=== PATIENT | male | born 1975 | race Asian ===

== ENCOUNTER 2023-05-10 09:20 | Outpatient (CLI) | payer BC, SELFPAY ==
[2023-05-10 14:26] LABS: Alanine Aminotransferase 33 U/L (6-50); Albumin Level 4.4 g/dL (3.5-5.1); Alkaline Phosphatase 70 U/L (38-126); Anion Gap 6 mmol/L (8-16); Aspartate Amino Transferase 39 U/L (17-59); Bilirubin,Total 1.4 mg/dL (0.2-1.3); Blood Urea Nitrogen 12 mg/dL (9-20); Calcium 9.3 mg/dL (8.4-10.2); Carbon Dioxide 33 mmol/L (22-30); Chloride 99 mmol/L (98-107); Cholesterol 190 mg/dL (0-200); Estimated Glomerular Filt Rate > 60; Glucose 116 mg/dL (65-110); HDL Direct 33 mg/dL; Potassium 3.5 mmol/L (3.4-5.0); Sodium 138 mmol/L (137-145); Triglycerides 286 mg/dL (<150)
[2023-05-10 14:37] LABS: LDL Cholesterol Direct 98 mg/dL
== END 2023-05-10 09:21 | disposition home or self-care (01) ==
LOC: ANHGOSHLAB 09:22
PROVIDERS: PCP Family Medicine; Visit Provider Family Medicine
DX: R73.03 Prediabetes (principal); E78.1 Pure hyperglyceridemia; Z13.228 Encounter for screening for other metabolic disorders
CPT/HCPCS: 36415; 80053; 80061; 83036

== ENCOUNTER 2023-06-22 02:36 | Day surgery (SDC) | payer BC, SELFPAY ==
[2023-06-15 09:54] VITALS: BMI 25.4
--- NOTE | 2023-06-20 09:11 | SUR.PREOP ---
Patient called regarding upcoming procedure. Reviewed preop instructions, appointment times, and procedure prep.
[2023-06-22 09:46] VITALS: BP 96/74; PULSE 62; RESP 20; O2SAT 99
[2023-06-22 09:57] VITALS: BMI 24.7
[2023-06-22] MEDS: LACTATED RINGERS 1,000 ML 150 ML IV CONT (10:00)
--- NOTE | 2023-06-22 10:06 | P.PNAN_ITS ---
Anes - Initial Pre Proc Eval Procedure: Operation Date: 06/22/23 11:00 Proposed Procedures p Screening Colonoscopy - David Puri MD Date/Time: 06/22/23 10:06 Surgeon: David Puri MD Pre Op Diagnosis: neoplasm screening Patient Data Age: 47 Gender: M Height: 1.83 m Weight: 83 kg Allergies Allergy/AdvReac Type Severity Reaction Status Date / Time No Known Allergies Allergy Verified 06/22/23 09:55 Home Medications Medication Instructions Recorded Confirmed Type hydrochlorothiazide 25 mg tablet 25 mg PO DAILY #90 tabs 05/13/23 06/22/23 Rx losartan 50 mg tablet 50 mg PO DAILY #90 tabs 05/13/23 06/22/23 Rx Patient hx anesthesia problems: none Family hx anesthesia problems: none Results Review: All pre-operative results and documents have been reviewed as part of the pre- operative evaluation. [facility] Past Medical History Medical History Acute serous otitis media, recurrent, unspecified ear Acute upper respiratory infection Hematuria, gross Mixed hyperlipidemia Prostatitis, acute Family History Family History Mother Patient's mother is in good health Father Patient's father is in good health Social History Social History Years smoked: 20 Smoking status: Current some day smoker Tobacco type: cigarettes Smoking end date: 04/22/22 Alcohol intake: current Drinks per week: 1 Alcohol use details: Beer & Whiskey Substance use: never Substance use type: does not use Lack of Transportation: No Lack of Food: Never True Current Housing: I Have Housing Concerned About Future Housing: No Difficulty Paying Gas/Electric Bills: No Difficulty Paying for Meds: No Currently Unemployed: No Education: Master's Degree or Higher Difficulty w/ Childcare or Family Care: No Living arrangements: with family Occupation/Education: occupation 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): Male Sexual Orientation (if Verbalized by the Patient): Straight or Heterosexual Spiritual care concerns: No Anes - Eval Final PreProcedure Day of Procedure 03/13/24 10:06 Patient weight: normal Heart: regular rate and rhythm Lungs: clear to auscultation Airway: Mallampati scale class II Neurological: alert and oriented Last oral intake: >/= 8 hours ASA classification: II Emergent: no Anesthetic plan: proceed Anesthesia type and monitoring: general GIVS and standard monitoring Results Review: All pre-operative results and documents have been reviewed as part of the pre- operative evaluation. Informed Consent: The patient's anesthetic plan and its attendant risks and benefits were discussed with the patient/family/POA. Questions were solicited and answers provided to the satisfaction of the patient/family/POA.
--- NOTE | 2023-06-22 10:59 | PM.HPGS ---
History of Present Illness History of Present Illness Consent: Risks, benefits, and alternatives have been discussed and questions answered. Patient agrees to proceed with procedure. Chief complaint: neoplasm screening Narrative: Lior Aguila is a 47 year old male here for first screening colonoscopy Review of Systems Review of Systems: All systems reviewed & are unremarkable except as noted in HPI and below PMFSH Past Medical History Medical History (Updated 06/22/23 @ 10:59 by David Puri MD) Acute serous otitis media, recurrent, unspecified ear Acute upper respiratory infection Colon cancer screening Hematuria, gross Mixed hyperlipidemia Prostatitis, acute Family History Family History Mother Patient's mother is in good health Father Patient's father is in good health Social History Social History Years smoked: 20 Smoking status: Current some day smoker Tobacco type: cigarettes Smoking end date: 04/22/22 Alcohol intake: current Drinks per week: 1 Alcohol use details: Beer & Whiskey Substance use: never Substance use type: does not use Lack of Transportation: No Lack of Food: Never True Current Housing: I Have Housing Concerned About Future Housing: No Difficulty Paying Gas/Electric Bills: No Difficulty Paying for Meds: No Currently Unemployed: No Education: Master's Degree or Higher Difficulty w/ Childcare or Family Care: No Living arrangements: with family Occupation/Education: occupation 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): Male Sexual Orientation (if Verbalized by the Patient): Straight or Heterosexual Spiritual care concerns: No Meds Home Medications and Allergies Home Medications Medication Instructions Recorded Confirmed Type hydrochlorothiazide 25 mg tablet 25 mg PO DAILY #90 tabs 05/13/23 06/22/23 Rx losartan 50 mg tablet 50 mg PO DAILY #90 tabs 05/13/23 06/22/23 Rx Allergies Allergy/AdvReac Type Severity Reaction Status Date / Time No Known Allergies Allergy Verified 06/22/23 09:55 Exam Const: General: comfortable and no acute distress HENMT: Face/Nose/Sinus: Normal nares present Eyes: General: appearance normal, both eyes and all related structures Neck: Neck: no JVD Resp: Auscultation: clear to auscultation bilaterally Cardio: Rate: regular rate Rhythm: regular rhythm GI: Inspection: non-distended GI Palp: Yes Soft to palpation Skin: General skin exam: normal color Neuro: General: gait normal Speech: normal speech Extrem: General: normal to inspection Psych: Mental Status: mental status grossly normal Assessment and Plan Assessment and plan (1) Colon cancer screening: Code(s): Z12.11 - Encounter for screening for malignant neoplasm of colon Status: Acute Assessment and Plan: colonoscopy
[2023-06-22 11:15] VITALS: BP 99/60; PULSE 55; RESP 17; O2SAT 100
[2023-06-22 11:25] VITALS: BP 97/64; PULSE 55; RESP 19; O2SAT 100
[2023-06-22 11:35] VITALS: BP 102/76; PULSE 55; RESP 16; O2SAT 99
== END 2023-06-22 11:43 | disposition home or self-care (01) ==
PROVIDERS: PCP Family Medicine; Visit Provider Internal Medicine Gastroenterology
PROC: 0DJD8ZZ Inspection of Lower Intestinal Tract, Via Natural or Artificial Opening Endoscopic (ICD-10-PCS; CPT 45378; principal; 2023-06-22 11:00)
DX: Z12.11 Encounter for screening for malignant neoplasm of colon (principal); D12.4 Benign neoplasm of descending colon; Z87.891 Personal history of nicotine dependence
CPT/HCPCS: 45380; 88305; J2704; J7120

== ENCOUNTER 2024-07-04 08:02 | Emergency (ER) | payer BC, SELFPAY ==
--- NOTE | ~2024-07-04 | XR_ITS ---
EXAMINATION: XR ankle RT min 3V DATE: 07/04/2024 08:32 INDICATION: Lateral right ankle pain and swelling post fall TECHNIQUE: Anteroposterior, oblique, mortise, and lateral views of the right ankle were obtained. COMPARISON: None. FINDINGS: Alignment is normal. No fracture. Joint spaces are well maintained. Achilles calcaneal spur. No ankl e joint effusion. Soft tissue swelling overlying the dorsolateral aspect of the mid and hindfoot. IMPRESSION: 1. No acute osseous abnormality. Reviewed, dictated and finalized at location B.
[2024-07-04 08:14] VITALS: BP 143/99; PULSE 60; RESP 16; TEMP 36.5; O2SAT 100
--- NOTE | 2024-07-04 08:23 | ED.LOWEXIN ---
HPI - Extremity Injury (Lower) General Chief Complaint: Extremity Injury, Lower Stated Complaint: INJURED R ANKLE Time Seen by Provider: 07/04/24 08:15 Source: patient and RN notes reviewed Mode of arrival: ambulatory Limitations: no limitations History of Present Illness HPI Narrative: Patient presents today complaining of right lateral ankle pain. He fell up some stairs at home this morning, twisting it. Denies numbness or tingling in the leg or foot. Currently rates his pain 5/10, which increases with weight-bearing. He took some Tylenol prior to arrival which did provide some relief. No previous injury to the affected ankle. Related Data Allergies Allergy/AdvReac Type Severity Reaction Status Date / Time No Known Allergies Allergy Verified 07/04/24 08:10 Review of Systems Review of Systems: CONSTITUTIONAL: Denies body aches, fever, chills, or sweats. EYES: Denies visual changes, redness, or discharge. ENT: Denies rhinorrhea, congestion, sore throat, or otalgia. CARDIOVASCULAR: Denies chest pain, palpitations, or edema. RESPIRATORY: Denies cough or dyspnea. GASTROINTESTINAL: Denies abdominal pain, nausea, vomiting, or diarrhea. GENITOURINARY: Denies dysuria or hematuria. SKIN: Denies rash, itching, or wounds. MUSCULOSKELETAL: Denies back pain, or myalgia.+ right ankle injury NEUROLOGIC: Denies headache, numbness, tingling, or weakness. PSYCH: Denies depression or anxiety. [facility] Past Medical History Medical History Colon cancer screening Acute serous otitis media, recurrent, unspecified ear Acute upper respiratory infection Hematuria, gross Mixed hyperlipidemia Prostatitis, acute Family History Family History Mother Patient's mother is in good health Father Patient's father is in good health Social History Social History Years smoked: 20 Smoking status: Current some day smoker Tobacco type: cigarettes Smoking end date: 04/22/22 Alcohol intake: current Drinks per week: 1 Alcohol use details: Beer & Whiskey Substance use: never Substance use type: does not use Lack of Transportation: No Lack of Food: Never True Current Housing: I Have Housing Concerned About Future Housing: No Difficulty Paying Gas/Electric Bills: No Difficulty Paying for Meds: No Currently Unemployed: No Education: Master's Degree or Higher Difficulty w/ Childcare or Family Care: No Living arrangements: with family Occupation/Education: occupation 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 Please see nursing chart for further information. There is no relevant family history pertinent to the presenting complaint Exam Narrative: GENERAL: Well-appearing, well-nourished, and in no acute distress. HEAD: Normocephalic, atraumatic. EYES: EOMI. No redness or drainage. Conjunctivae normal. ENT: Mucous membranes pink and moist. NECK: Normal AROM. CHEST: No respiratory distress. EXTREMITIES: Right ankle: Bony tenderness to the lateral malleolus with mild localized edema anteriorly. No tenderness medially or posteriorly. Mild tenderness to the lateral foot as well without edema. No erythema, deformity, ecchymosis. Distal sensation intact. Capillary refill normal. Pedal pulse normal. Full range of motion of the toes. Range of motion limited to the ankle due to pain. SKIN: Warm, dry, no rash. Capillary refill normal. Normal skin turgor. NEURO: No focal deficits. Alert and oriented x3. Gait steady. PSYCH: Normal affect. No signs of depression or anxiety. Course Course Level of Care: Express Care Visit Vital Signs Vital signs: Vital Signs Temperature 97.7 F 07/04/24 08:14 Pulse Rate 60 07/04/24 08:14 Respiratory Rate 16 07/04/24 08:14 Blood Pressure 143/99 H 07/04/24 08:14 Pulse Oximetry 100 07/04/24 08:14 Temperature 97.7 F 07/04/24 08:14 Pulse Rate 60 07/04/24 08:14 Respiratory Rate 16 07/04/24 08:14 Blood Pressure 143/99 H 07/04/24 08:14 Pulse Oximetry 100 07/04/24 08:14 Reviewed MDM - Extremity Injury (Lower) MDM Narrative Medical decision making narrative: Ankle x-ray is negative for fracture. Yong wrap applied. Recommend conservative treatment for 7-10 days, and referral to orthopedics if symptoms persist after this time. Anticipatory guidance given. Differential Diagnosis Differential diagnosis: Likely ankle sprain and strain and ankle fracture Imaging Data Radiologist's impression: ITS Impressions Ankle X-Ray 07/04/24 08:34 IMPRESSION: 1. No acute osseous abnormality. Critical Care Time Critical Care Time Critical Care Time: No Discharge Plan Discharge Clinical Impression: Right ankle sprain Qualifiers: Encounter type: initial encounter Involved ligament of ankle: unspecified ligament Qualified Code(s): S93.401A - Sprain of unspecified ligament of right ankle, initial encounter Patient Disposition: Home, Self-Care Condition: Stable Instructions: Ankle Sprain (DC) Additional Instructions: Your x-rays negative for fracture. Wear the Yong wrap for comfort and stability. Elevate and ice the ankle. Take Tylenol or ibuprofen for pain, if able. Follow-up with your PCP or orthopedic physician in 7-10 days if symptoms are not improving. Your blood pressure was elevated above 120/80 today at Urgent Care. This puts you above the threshold for follow up. Please schedule a followup visit with your personal physician as soon as possible, for further evaluation and treatment. Even blood pressure exceeding 120/80 may indicate pre-hypertension. Patient Language: Hebrew Prescriptions: No Action hydrochlorothiazide 25 mg tablet 25 mg PO DAILY Qty: 90 1RF losartan 50 mg tablet 50 mg PO DAILY Qty: 90 1RF Follow-up/Referrals: Ryan Crow MD [Physician] - UNKNOWN,DOCTOR [Primary Care Provider] - Stand Alone Forms: Work/School Release IP Time of Disposition: 08:50
== END 2024-07-04 08:52 | disposition home or self-care (01) ==
PROVIDERS: Emergency Provider Nurse Practitioner
DX: S93.401A Sprain of unspecified ligament of right ankle, initial encounter (principal); W10.9XXA Fall (on) (from) unspecified stairs and steps, initial encounter; E78.2 Mixed hyperlipidemia; Z87.891 Personal history of nicotine dependence
CPT/HCPCS: 73610; 99213; G0463

== ENCOUNTER 2024-12-17 08:09 | Outpatient (CLI) | payer BC, SELFPAY ==
[2024-12-17 12:53] LABS: Hematocrit 45.9 % (42.0-52.0); Hemoglobin 15.0 g/dL (14.0-18.0); Immature Granulocyte Percent A 0.5 % (0-0.5); Lymphocytes Absolute Auto 1.87 K/mm3 (0.9-3.2); Mean Corpuscular HGB Conc 32.7 g/dl (32-36); Mean Corpuscular Hemoglobin 28.8 pg (26-34); Mean Corpuscular Volume 88.1 fl (80-100); Nucleated Red Blood Cells Absolute Auto 0.000 K/mm3 (0.0-0.012); Nucleated Red Blood Cells Perc 0.0 % (0.0-0.2); Platelet Count Result 221 k/mm3 (150-375); Red Blood Count 5.21 M/mm3 (4.6-6.20); White Blood Count 5.7 K/mm3 (4.5-10.0)
[2024-12-17 13:13] LABS: Hemoglobin A1C 5.9 % (<5.7)
[2024-12-17 13:26] LABS: Alanine Aminotransferase 25 U/L (6-50); Albumin Level 4.2 g/dL (3.5-5.1); Alkaline Phosphatase 73 U/L (38-126); Anion Gap 6 mmol/L (4-12); Aspartate Amino Transferase 50 U/L (17-59); Bilirubin,Total 1.2 mg/dL (0.2-1.3); Blood Urea Nitrogen 10 mg/dL (9-20); Calcium 9.2 mg/dL (8.4-10.2); Carbon Dioxide 29 mmol/L (22-30); Chloride 104 mmol/L (98-107); Cholesterol 217 mg/dL (0-200); Estimated Glomerular Filt Rate > 60; Glucose 103 mg/dL (65-110); HDL Direct 32 mg/dL; Potassium 4.0 mmol/L (3.4-5.0); Sodium 139 mmol/L (137-145); Total Protein 6.6 g/dL (6.3-8.2); Triglycerides 245 mg/dL (<150)
[2024-12-17 14:00] LABS: Prostate Specific Antigen 2.1 ng/mL (< OR = 4.0)
[2024-12-19 07:09] LABS: ANA by IFA Rfx Titer/Pattern Negative (.)
== END 2024-12-17 08:10 | disposition home or self-care (01) ==
LOC: ANHGOSHLAB 08:10
PROVIDERS: PCP Nurse Practitioner; Visit Provider Nurse Practitioner
DX: E78.1 Pure hyperglyceridemia (principal); I10 Essential (primary) hypertension; R73.03 Prediabetes; M25.50 Pain in unspecified joint; Z12.5 Encounter for screening for malignant neoplasm of prostate
CPT/HCPCS: 36415; 80053; 80061; 83036; 84153; 85025; 86038; 86430; G0103